=== PATIENT | female | born 1995 | race Caucasian/White ===

== ENCOUNTER 2017-02-02 05:45 | Inpatient (IN) | payer OTHER ==
[~2017-02-02] VITALS: Ht 152.4 cm; Wt 68.5 kg
[2017-02-02 06:39] LABS: RED BLOOD COUNT 3.47 M/UL (4.00-5.10); WHITE BLOOD COUNT 13.5 K/UL (4.5-11.0)
[2017-02-03 02:36] LABS: HEMOGLOBIN 10.3 gm/dl (12.3-15.3)
[2017-02-04] MEDS ORDERED: IBUPROFEN600 MG PO (11:47)
== END 2017-02-04 13:35 | disposition home or self-care (01) | DRG 775 ==
LOC: OB 05:45
PROVIDERS: Obstetrics & Gynecology; ADMIT Obstetrics & Gynecology
PROC: 10907ZC Drainage of Amniotic Fluid, Therapeutic from Products of Conception, Via Natural or Artificial Opening (ICD-10-PCS; principal; 2017-02-02)
PROC: 0HQ9XZZ Repair Perineum Skin, External Approach (ICD-10-PCS; principal; 2017-02-02)
PROC: 10E0XZZ Delivery of Products of Conception, External Approach (ICD-10-PCS; principal; 2017-02-02)
PROC: 3E0R3BZ Introduction of Anesthetic Agent into Spinal Canal, Percutaneous Approach (ICD-10-PCS; principal; 2017-02-02)
DX: O99.334 Smoking (tobacco) complicating childbirth (principal); F17.210 Nicotine dependence, cigarettes, uncomplicated; O70.0 First degree perineal laceration during delivery; Z3A.39 39 weeks gestation of pregnancy; Z88.0 Allergy status to penicillin; Z37.0 Single live birth
CPT/HCPCS: 36415; 51702; 80307; 81001; 82800; 85014; 85018; 85025; 90715; J2795; J3010; J7120

== ENCOUNTER 2021-03-14 09:09 | Outpatient (CLI) | payer OTHER ==
[~2021-03-14 09:09] MED LIST: IBUPROFEN600 MG PO
== END 2021-03-14 11:25 | disposition other institution (70) ==
LOC: GENOP 09:09
DX: O42.913 Preterm premature rupture of membranes, unspecified as to length of time between rupture and onset of labor, third trimester (principal); O99.323 Drug use complicating pregnancy, third trimester; F11.10 Opioid abuse, uncomplicated; O99.333 Smoking (tobacco) complicating pregnancy, third trimester; F17.210 Nicotine dependence, cigarettes, uncomplicated; Z88.0 Allergy status to penicillin; Z91.048 Other nonmedicinal substance allergy status; Z79.899 Other long term (current) drug therapy; Z3A.30 30 weeks gestation of pregnancy; Z20.822 Contact with and (suspected) exposure to COVID-19
CPT/HCPCS: 51702; 76815; 83518; 96360; 96361; 96365; 96367; 96372; J0456; J0690; J0702; J3475; J7120; U0002

== ENCOUNTER 2022-02-11 04:04 | Emergency (ER) | payer OTHER ==
[2022-02-11] MEDS ORDERED: AMOX TR-K CLV1 EAC4 PO (05:15)
[2022-02-11] MEDS ORDERED: BACTRIM DS TAB1 EACH PO (05:15)
== END 2022-02-11 05:30 | disposition home or self-care (01) ==
LOC: ER1 04:04
DX: L03.213 Periorbital cellulitis (principal); F17.210 Nicotine dependence, cigarettes, uncomplicated
CPT/HCPCS: 99283

== ENCOUNTER → 2022-05-05 | Outpatient (CLI) | payer OTHER ==
[~2022-05-05] MED LIST changes: +AMOX TR-K CLV1 EAC4 PO; +BACTRIM DS TAB1 EACH PO
== END ==
LOC: LAB 21:46
DX: Z02.83 Encounter for blood-alcohol and blood-drug test (principal)
CPT/HCPCS: 36415

== ENCOUNTER → 2022-05-28 | Outpatient (CLI) | payer OTHER | LOC: KOH-I 12:34 | DX: M54.2 Cervicalgia (principal); M54.6 Pain in thoracic spine; M54.50 Low back pain, unspecified; R05.9 Cough, unspecified | CPT/HCPCS: 71046; 72040; 72070; 72100; 73110; 73562 ==